=== PATIENT | male | born 1930 | race Caucasian/White ===

== ENCOUNTER 2017-05-27 07:53 | Emergency (ER) | payer MEDICARE, OTHER ==
[2017-05-27 08:05] VITALS: BP 143/70
--- NOTE | 2017-05-27 08:18 | UC ---
Ear Complaint HPI - HPI Summary HPI Summary: Left ear pain x1 week. No fever. No discharge from the ear or recent swimming. [ End ] - History of Current Complaint Chief Complaint: UCEar Stated Complaint: EAR PAIN Time Seen by Provider: 05/27/17 08:11 Hx Obtained From: Patient Onset/Duration: Gradual Onset Severity Initially: Moderate Severity Currently: Moderate Associated Signs/Symptoms: Positive: Hearing Loss. Negative: Discharge, Foreign Body Sensation, Trauma to Ear, Swelling @, URI Symptoms - Allergies/Home Medications Allergies/Adverse Reactions: Allergies Allergy/AdvReac Type Severity Reaction Status Date / Time No Known Allergies Allergy Verified 05/27/17 07:59 PMH/Surg Hx/FS Hx/Imm Hx Previously Healthy: Yes - Surgical History Surgical History: Yes Surgery Procedure, Year, and Place: GALL BLADDER REMOVAL,LAMINECTOMY,COLECTOMY, UPPER RIGHT LOBE PNEUMONECTOMY - Family History Known Family History: Positive: Unknown, Respiratory Disease - Social History Occupation: Retired Lives: With Family Alcohol Amount: 2 glasses wine daily Substance Use Type: None Smoking Status (MU): Former Smoker Type: Cigarettes Have You Smoked in the Last Year: No When Did the Patient Quit Smoking/Using Tobacco: 1975 - Immunization History Most Recent Influenza Vaccination: July 2015 Review of Systems Constitutional: Negative Skin: Negative Eyes: Negative ENT: Ear Ache Respiratory: Negative Cardiovascular: Negative Gastrointestinal: Negative Genitourinary: Negative Motor: Negative Neurovascular: Negative Musculoskeletal: Negative Neurological: Negative Psychological: Negative All Other Systems Reviewed And Are Negative: Yes Physical Exam Triage Information Reviewed: Yes Appearance: Well-Appearing, No Pain Distress, Well-Nourished Vital Signs: Initial Vital Signs Temp 97.4 F 05/27/17 08:01 Pulse 62 05/27/17 08:01 Resp 16 05/27/17 08:01 BP 143/70 05/27/17 08:01 Pulse Ox 99 05/27/17 08:01 Vital Signs Reviewed: Yes Eye Exam: Normal ENT Exam: Normal ENT: Positive: TM dull - left serous effusion. Negative: Nasal drainage Dental Exam: Normal Neck exam: Normal Neck: Positive: 1 Respiratory Exam: Normal Cardiovascular Exam: Normal Musculoskeletal Exam: Normal Neurological Exam: Normal Psychological Exam: Normal Skin Exam: Normal Ear Complaint Course/Dx - Differential Dx/Diagnosis Differential Diagnosis/HQI/PQRI: Cerumen Impaction, Otitis Externa, Otitis Media , Perforated TM, URI Provider Diagnoses: Serous Effusion Left Ear Discharge - Discharge Plan Condition: Good Disposition: HOME Patient Education Materials: Serous Otitis Media (ED) Referrals: Kyle Martin MD [Primary Care Provider] - If Needed Additional Instructions: PLEASE START CLARITIN 10 MG DAILY FOR 2 WEEKS.
== END 2017-05-27 08:29 | disposition home or self-care (01) ==
LOC: UCCORT 07:53
DX: H65.92 Unspecified nonsuppurative otitis media, left ear (principal); Z87.891 Personal history of nicotine dependence
CPT/HCPCS: 99211; G0463

== ENCOUNTER 2017-06-10 13:33 | Emergency (ER) | payer OTHER ==
[2017-06-10 13:43] VITALS: BP 130/87
--- NOTE | 2017-06-10 14:12 | UC ---
UC General HPI - HPI Summary HPI Summary: Recent travel to the [facility], has had frequent watery diarrhea, decreased appetite and gurgling. He is able to drink and urinate without difficulty. no fever, dizzyness or lightheadeness - History of Current Complaint Chief Complaint: UCGI Stated Complaint: DIARRHEA Time Seen by Provider: 06/10/17 14:01 Hx Obtained From: Patient Onset/Duration: Sudden Onset, Lasting Days Timing: Constant Onset Severity: Mild Current Severity: Moderate Associated Signs & Symptoms: Positive: Diarrhea - Allergy/Home Medications Allergies/Adverse Reactions: Allergies Allergy/AdvReac Type Severity Reaction Status Date / Time No Known Allergies Allergy Verified 06/10/17 13:42 PMH/Surg Hx/FS Hx/Imm Hx Previously Healthy: Yes - Surgical History Surgical History: Yes Surgery Procedure, Year, and Place: GALL BLADDER REMOVAL,LAMINECTOMY,COLECTOMY, UPPER RIGHT LOBE PNEUMONECTOMY - Family History Known Family History: Positive: Unknown, Respiratory Disease - Social History Alcohol Use: Weekly Alcohol Amount: 2 glasses wine Substance Use Type: None Smoking Status (MU): Former Smoker Type: Cigarettes Have You Smoked in the Last Year: No When Did the Patient Quit Smoking/Using Tobacco: 1975 - Immunization History Most Recent Influenza Vaccination: July 2015 Review of Systems Constitutional: Negative Skin: Negative Eyes: Negative ENT: Negative Respiratory: Negative Cardiovascular: Negative Gastrointestinal: Diarrhea Genitourinary: Negative Motor: Negative Neurovascular: Negative Musculoskeletal: Negative Neurological: Negative Psychological: Negative All Other Systems Reviewed And Are Negative: Yes Physical Exam Triage Information Reviewed: Yes Appearance: Well-Appearing, Well-Nourished, Pain Distress Vital Signs: Initial Vital Signs Temp 98.1 F 06/10/17 13:38 Pulse 80 06/10/17 13:38 Resp 16 06/10/17 13:38 BP 130/87 06/10/17 13:38 Pulse Ox 98 06/10/17 13:38 Vital Signs Reviewed: Yes Eye Exam: Normal ENT Exam: Normal Dental Exam: Normal Neck exam: Normal Respiratory Exam: Normal Respiratory: Positive: Chest non-tender, Lungs clear, Normal breath sounds Cardiovascular Exam: Normal Cardiovascular: Positive: RRR, No Murmur, Pulses Normal Abdominal Exam: Normal Abdomen Description: Positive: Nontender, No Organomegaly, Soft, CVA Tenderness (R) - neg, CVA Tenderness (L) - neg Bowel Sounds: Positive: Hyperactive Musculoskeletal Exam: Normal Musculoskeletal: Positive: No Edema Psychological Exam: Normal Skin Exam: Normal Course/Dx - Course Course Of Treatment: hx obtained, exam performed, meds reviewed, stool kit, cbc and cmp obtained, - Differential Dx - Multi-Symptom Provider Diagnoses: travelers diarrhea Discharge - Discharge Plan Condition: Stable Disposition: HOME Patient Education Materials: Traveler's Diarrhea (ED) Additional Instructions: 1. your lab work and stool samples will be sent to lab today, 2. We will call with any abnormalities 3. Continue to increase fluid intake and eat as tolerated 4. If you develop any lightheadness, dizzyness, chest pain or other worsening symtpoms report to ER for hyrdation and further evaluation.
[2017-06-10 19:33] LABS: Hematocrit 46 % (42-52); Hemoglobin 15.7 g/dl (14.0-18.0); Mean Corpuscular HGB Conc 34 g/dl (31-36); Mean Corpuscular Hemoglobin 32 pg (27-31); Mean Corpuscular Volume 94 fL (80-94); Mean Platelet Volume 8 um3 (7.4-10.4); Red Blood Count 4.95 10^6/ul (4.0-5.4); Red Cell Distribution Width 14 % (10.5-15); White Blood Count 5.7 10^3/ul (3.5-10.8)
[2017-06-10 19:44] LABS: Albumin 4.4 g/dL (3.2-5.2); BUN/Creatinine Ratio 17.8 (8-20); Calcium 9.2 mg/dL (8.6-10.3); EGFR African American 84.7 (>60); EGFR Non-African American 65.8 (>60); Globulin 2.2 g/dL (2-4); Potassium 3.9 mmol/L (3.5-5.0); Total Bilirubin 0.7 mg/dL (0.2-1.0); Total Protein 6.6 g/dL (6.4-8.9)
--- NOTE | 2017-06-15 13:35 | UC ---
Progress - Progress Note Progress Note: PLEASE CALL THE PT WITH THE STOOL CULTURE RESULTS + SHIGELLA NO TREATMENT NEEDED AT THIS TIME SELF LIMITED BACTERIAL INFECTION UNLESS STILL HAVING DIARRHEA I THE PT. IS NOT BETTER AND STILL HAS DIARRHEA, WILL CALL IN AN ANTIBIOTICS FOR HIM
== END 2017-06-10 14:43 | disposition home or self-care (01) ==
LOC: UCCORT 13:33
DX: A09 Infectious gastroenteritis and colitis, unspecified (principal); Z90.49 Acquired absence of other specified parts of digestive tract; Z87.891 Personal history of nicotine dependence
CPT/HCPCS: 36415; 80053; 85025; 87045; 87046; 87077; 87177; 87209; 87328; 87329; 87899; 99211; G0463

== ENCOUNTER 2017-10-16 20:30 | Emergency (ER) | payer OTHER ==
[2017-10-16 20:58] VITALS: BP 135/75
[2017-10-16] MEDS ORDERED: Polymyx/Trimethoprim OPTH* 10 ML BTL BOTH EYES ONE (21:00)
--- NOTE | 2017-10-16 21:00 | UC ---
Eye Complaint HPI - HPI Summary HPI Summary: Crusting and tearing from both eye began this morning - History of Current Complaint Chief Complaint: UCEye Stated Complaint: BILATERAL EYE COMPLAINT Time Seen by Provider: 10/16/17 20:49 Hx Obtained From: Patient Onset/Duration: Sudden Onset, Lasting Days - 1 Timing: Constant Severity Initially: Moderate Severity Currently: Moderate Location of Injury: Conjunctiva Aggravating Factor(s): Nothing Alleviating Factor(s): Nothing Associated Signs And Symptoms: Positive: Drainage (Purulent). Negative: Vision Impairment Bilateral, Fever, Swelling - Allergies/Home Medications Allergies/Adverse Reactions: Allergies Allergy/AdvReac Type Severity Reaction Status Date / Time No Known Allergies Allergy Verified 07/12/17 10:19 PMH/Surg Hx/FS Hx/Imm Hx Previously Healthy: No Cardiovascular History: Cardiac Disease, Hypertension Other GI/ History: BPH Other Neurological History: Vetrtigo - Surgical History Surgical History: Yes Surgery Procedure, Year, and Place: GALL BLADDER REMOVAL,LAMINECTOMY,COLECTOMY, UPPER RIGHT LOBE PNEUMONECTOMY - Family History Known Family History: Positive: Unknown, Respiratory Disease - Social History Occupation: Retired Lives: With Family Alcohol Use: Weekly Alcohol Amount: 2 glasses wine Substance Use Type: None Smoking Status (MU): Former Smoker Type: Cigarettes Have You Smoked in the Last Year: No When Did the Patient Quit Smoking/Using Tobacco: 1975 - Immunization History Most Recent Influenza Vaccination: July 2015 Review of Systems Constitutional: Negative Skin: Negative Eyes: Drainage - OU, Eye Redness - ou ENT: Negative Respiratory: Negative Cardiovascular: Negative Gastrointestinal: Negative Genitourinary: Negative Motor: Negative Neurovascular: Negative Musculoskeletal: Negative Neurological: Negative Psychological: Negative Is Patient Immunocompromised?: No All Other Systems Reviewed And Are Negative: Yes Physical Exam Triage Information Reviewed: Yes Appearance: Well-Appearing, No Pain Distress, Well-Nourished Vital Signs Reviewed: Yes Eye Exam: Other Eyes: Positive: Conjunctiva Inflamed - OU, Discharge - OU ENT Exam: Normal ENT: Positive: Normal ENT inspection, Hearing grossly normal, TMs normal, Uvula midline. Negative: Nasal congestion, Tonsillar swelling, Trismus, Muffled voice , Hoarse voice, Dental tenderness, Sinus tenderness Dental Exam: Normal Neck exam: Normal Neck: Positive: Supple, Nontender Respiratory Exam: Normal Respiratory: Positive: Chest non-tender, Lungs clear, Normal breath sounds, No respiratory distress, No accessory muscle use Cardiovascular Exam: Normal Cardiovascular: Positive: RRR, No Murmur, Pulses Normal, Brisk Capillary Refill Musculoskeletal Exam: Normal Musculoskeletal: Positive: Strength Intact, ROM Intact, No Edema Neurological Exam: Normal Neurological: Positive: Alert, Muscle Tone Normal Psychological Exam: Normal Psychological: Positive: Normal Response To Family, Age Appropriate Behavior Skin Exam: Normal Eye Complaint Course/Dx - Course Course Of Treatment: Polytrim eye drops warm compress follow with pcp - Differential Dx/Diagnosis Provider Diagnoses: B/L conjuctivitis Discharge - Discharge Plan Condition: Stable Disposition: HOME Patient Education Materials: How to Use Eye Drops (ED), Conjunctivitis (ED) Referrals: Kyle Martin MD [Primary Care Provider] - If Needed
== END 2017-10-16 21:15 | disposition home or self-care (01) ==
LOC: UCCORT 20:30
DX: H10.33 Unspecified acute conjunctivitis, bilateral (principal); I51.9 Heart disease, unspecified; I10 Essential (primary) hypertension; N40.0 Benign prostatic hyperplasia without lower urinary tract symptoms; R42 Dizziness and giddiness; Z90.49 Acquired absence of other specified parts of digestive tract; Z90.2 Acquired absence of lung [part of]; Z87.891 Personal history of nicotine dependence
CPT/HCPCS: 99212; G0463

== ENCOUNTER 2018-03-15 07:55 | Emergency (ER) | payer OTHER ==
[2018-03-15 08:24] VITALS: BP 142/80
--- NOTE | 2018-03-15 08:33 | UC ---
Respiratory Complaint HPI - HPI Summary HPI Summary: cough x 5 days cough is productive with yellow sputum + runny nose, pnd, no fever, no chills , no sob - History of Current Complaint Chief Complaint: UCRespiratory Stated Complaint: CONGESTION Time Seen by Provider: 03/15/18 08:24 Hx Obtained From: Patient Onset/Duration: Gradual Onset, Lasting Days - 5, Still Present Timing: Constant Severity Initially: Moderate Severity Currently: Moderate Pain Intensity: 0 Character: Cough: Productive - yellow Aggravating Factors: Exertion, Deep Breaths Alleviating Factors: OTC Meds Associated Signs And Symptoms: Positive: URI, Nasal Congestion. Negative: Dyspnea, Fever, Chills, Pleuritic Chest Pain, Wheezing, Hemoptysis, Dizziness, Calf Pain, Calf Swelling, Edema, Hoarseness, Sinus Discomfort - Allergies/Home Medications Allergies/Adverse Reactions: Allergies Allergy/AdvReac Type Severity Reaction Status Date / Time No Known Allergies Allergy Verified 03/15/18 08:17 Home Medications: Home Medications Dextromethorphan Polistirex [Delsym] 30 mg PO BID PRN 03/15/18 [History Confirmed 03/15/18] PMH/Surg Hx/FS Hx/Imm Hx Cardiovascular History: Hypertension Respiratory History: COPD Cancer History: Lung Cancer, Colorectal Cancer - Surgical History Surgical History: Yes Surgery Procedure, Year, and Place: GALL BLADDER REMOVAL,LAMINECTOMY,COLECTOMY, UPPER RIGHT LOBE PNEUMONECTOMY - Family History Known Family History: Positive: Unknown, Respiratory Disease - Social History Alcohol Use: Daily Alcohol Amount: 2 glasses wine Substance Use Type: None Smoking Status (MU): Former Smoker Type: Cigarettes Have You Smoked in the Last Year: No When Did the Patient Quit Smoking/Using Tobacco: 1975 - Immunization History Most Recent Influenza Vaccination: July 2015 Review of Systems Constitutional: Negative Skin: Negative Eyes: Negative ENT: Nasal Discharge Respiratory: Cough Cardiovascular: Negative Gastrointestinal: Negative Is Patient Immunocompromised?: No All Other Systems Reviewed And Are Negative: Yes Physical Exam Triage Information Reviewed: Yes Appearance: Well-Appearing, No Pain Distress, Well-Nourished Vital Signs: Initial Vital Signs Temp 98.1 F 03/15/18 08:19 Pulse 75 03/15/18 08:19 Resp 20 03/15/18 08:19 BP 142/80 03/15/18 08:19 Pulse Ox 96 03/15/18 08:19 Vital Signs Reviewed: Yes Eyes: Positive: Conjunctiva Clear ENT: Positive: Normal ENT inspection, Hearing grossly normal, Pharyngeal erythema, Nasal drainage. Negative: Tonsillar swelling, Tonsillar exudate Neck exam: Normal Neck: Positive: Supple, Nontender, No Lymphadenopathy Respiratory Exam: Normal Respiratory: Positive: Chest non-tender, Lungs clear, Normal breath sounds, No respiratory distress Cardiovascular: Positive: RRR, No Murmur, Pulses Normal Skin Exam: Normal UC Diagnostic Evaluation - Laboratory O2 Sat by Pulse Oximetry: 96 Respiratory Course/Dx - Differential Dx/Diagnosis Provider Diagnoses: uri Discharge - Sign-Out/Discharge Documenting (check all that apply): Discharge/Admit/Transfer - Discharge Plan Condition: Stable Disposition: HOME Patient Education Materials: Upper Respiratory Infection (ED) Referrals: Kyle Martin MD [Primary Care Provider] - 7 Days - Billing Disposition and Condition Condition: STABLE Disposition: HOME
== END 2018-03-15 08:33 | disposition home or self-care (01) ==
LOC: UCCORT 07:55
DX: J06.9 Acute upper respiratory infection, unspecified (principal); I10 Essential (primary) hypertension; J44.9 Chronic obstructive pulmonary disease, unspecified; Z90.49 Acquired absence of other specified parts of digestive tract; Z87.891 Personal history of nicotine dependence; Z85.118 Personal history of other malignant neoplasm of bronchus and lung; Z85.038 Personal history of other malignant neoplasm of large intestine
CPT/HCPCS: 99211; G0463

== ENCOUNTER 2019-03-24 07:45 | Emergency (ER) | payer OTHER ==
--- OUTSIDE RECORDS SUMMARY | 2019-03-24 07:57 | XMS REPORT | Continuity of Care Document ---
:1930 External Reference #:[id number] Author Name Lee Lucio MD Address [address] [place] [address] Care Team Providers Name Role Phone Ralph Anne M.D. Care Team Information Supervisor [employer] Unavailable Kyle Martin MD Primary Care Physician Unavailable Payers Date Identification Numbers Payment Provider Subscriber Policy Number: [id number] [employer]vantage Gab Lui Group Number: [id number] [address] PayID: [id number] [place] [address] Expires: 2017 Policy Number: [id number] [employer] Gab Lui PayID: [id number] [address] [address] [place] [address] Effective: 2011 Policy Number: [id number] Medicare Gab Lui Expires: 2016 PayID: [id number] [address] [place] [address] Expires: 2016 Policy Number: [id number] [facility] Mary Lui Group Number: [id number] Group Name: [place] [address] PayID: [id number] Advance Directives Description No Information Available Problems Active Problems Provider Date Raised prostate specific antigen Lee Lucio MD Onset: 02/01/2012 Increased frequency of urination Lee Lucio MD Onset: 03/17/2012 Nocturia - finding Lee Lucio MD Onset: 03/17/2012 Dribbling of urine Lee Lucio MD Onset: 03/17/2012 Impotence of organic origin Lee Lucio MD Onset: 03/17/2012 Benign prostatic hypertrophy with Lee Lucio MD Onset: 03/17/2012 outflow obstruction Disorder of prostate YANELI AgrawalBC C.U.N.P. Onset: 09/21/2012 Microscopic hematuria YANELI AgrawalBC C.U.N.P. Onset: 09/21/2012 Urgent desire to urinate KATT Agrawal C.U.N.P. Onset: 02/20/2013 Benign prostatic hypertrophy without KATT Agrawal C.U.N.P. Onset: 05/2013 outflow obstruction Nocturia - finding YANELI AgrawalBC C.U.N.P. Onset: 05/25/2013 Kidney stone YANELI AgrawalBC C.U.N.P. Onset: 05/25/2013 Testicular hypofunction YANELI AgrawalBC C.U.N.P. Onset: 07/10/2014 Nephrolithiasis KATT Agrawal C.U.N.P. Onset: 07/10/2014 Nocturia Lee Lucio MD Onset: 07/12/2015 Sivakumar hematuria YANELI AgrawalBC C.U.N.P. 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 Onset: 07/13/2016 Incomplete emptying of bladder KATT Agrawal C.U.N.P. Onset: 07/13/2016 Family History Date Family Member(s) Observation Comments Father Heart Disease Mother Stroke Social History Type Date Description Comments Sex Unknown Marital Status Patient is Occupation Patient is retired Tobacco Use Start: Unknown End: Unknown Former Cigarette Smoker quit 1975 Smoking Status Reviewed: 02/23/19 Former Cigarette Smoker quit 1975 ETOH Use Consumes 2 glasses of wine per day Allergies, Adverse Reactions, Alerts Description No Known Drug Allergies Medications Active Medications SIG Qnty Indications Ordering Provider Date Pamela 1 po qd 60caps Unknown 0.5-0.4mg Capsules Symbicort Unknown 160-4.5mcg/Act Aerosol Aspirin Unknown 325mg Tablets Simvastatin Unknown 40mg Tablets Proair HFA Unknown 108(90Base) mcg/Act Aerosol History Medications [place] as directed one 6units Lee Lucio, 07/12/2015 - 500mcg Pellet half hour before 05/08/2016 sex Cialis one by mouth one 6tabs Lee Lucio, 07/12/2015 - 20mg Tablets hour before sex. 05/08/2016 Cephalexin Take one tid for 21tabs Lee Lucio, 02/20/2013 - 250mg 7 days 05/25/2013 Tablets Levitra take one tablet 4tabs Lee Lucio, 03/17/2012 - 20mg Tablets prior to sexual 07/12/2015 activity as needed Tamsulosin HCL Take 1 Capsule 90caps Lee Lucio, 05/18/2011 - 0.4mg Daily 05/25/2013 Capsules Tamsulosin HCL 1 po qd 90caps Gab Hobbs 04/22/2011 - 0.4mg MD Brandee 05/18/2011 Capsules Levitra as needed 6tabs Unknown - 10mg Tablets 03/17/2012 Cialis use 1 tab prn as 6tabs 607.84 Unknown - 20mg Tablets directed 05/25/2013 Meclizine HCL Unknown - 12.5mg 07/11/2015 Tablets Combivent Respimat prn Unknown - 07/11/2015 20-100mcg/Act Aerosol Telmisartan 1t by mouth every Unknown - Tablets day 07/11/2015 Immunizations Description No Information Available Vital Signs Date Vital Result Comment 02/23/2019 1:36pm Height 71 inches 5'11" BP Systolic 152 mmHg BP Diastolic 68 mmHg Heart Rate 77 /min 07/13/2018 11:36am Height 71 inches 5'11" Weight 240.00 lb Weight 108.864 kg BMI (Body Mass Index) 33.5 kg/m2 BP Systolic 127 mmHg BP Diastolic 75 mmHg Heart Rate 70 /min 07/13/2017 11:15am Height 71 inches 5'11" Weight 232.00 lb Weight 105.235 kg BMI (Body Mass Index) 32.4 kg/m2 BP Systolic 138 mmHg BP Diastolic 73 mmHg Heart Rate 73 /min 07/13/2016 10:53am Height 72 inches 6'0" Weight 242.00 lb Weight 109.771 kg BMI (Body Mass Index) 32.8 kg/m2 BP Systolic 131 mmHg BP Diastolic 69 mmHg Heart Rate 93 /min 03/25/2016 10:24am Height 72 inches 6'0" Weight 230.00 lb Weight 104.328 kg BMI (Body Mass Index) 31.2 kg/m2 BP Systolic 151 mmHg BP Diastolic 79 mmHg Heart Rate 71 /min 07/12/2015 1:40pm Height 72 inches 6'0" Weight 234.00 lb Weight 106.142 kg BMI (Body Mass Index) 31.7 kg/m2 BP Systolic 153 mmHg BP Diastolic 88 mmHg Heart Rate 77 /min Post Void Residual ml 94 Bladder Scan, Indication: urinary frequency 07/10/2014 10:46am Height 71 inches 5'11" Weight 242.00 lb Weight 109.771 kg BMI (Body Mass Index) 33.7 kg/m2 BP Systolic 187 mmHg BP Diastolic 80 mmHg Heart Rate 74 /min 05/25/2013 10:50am Height 71 inches 5'11" Weight 233.00 lb Weight 105.689 kg BMI (Body Mass Index) 32.5 kg/m2 BP Systolic 121 mmHg BP Diastolic 73 mmHg Heart Rate 96 /min 03/17/2012 1:24pm Height 71 inches 5'11" Weight 232.00 lb Weight 105.235 kg BMI (Body Mass Index) 32.4 kg/m2 BP Systolic 128 mmHg BP Diastolic 60 mmHg Results Test Date Facility Test Result H/L Range Note Laboratory test 02/23/2019 Laboratory [facility] Urine Culture < pending> finding [address] [place] [address] [phone] Laboratory test 02/23/2019 [facility] Urine Cytology <pending> finding [address] [place] [address] [phone] 230 Ua Routine 02/23/2019 [facility] Ua Glucose Negative REF TO DR ADDRESS ON ORDER FOR (398)- - Ua Protein Negative Ua Nitrite Negative Ua Leuko Negative Ua Blood Moderate * Ua Color Yellow Ua Ketones Negative Ua Clarity Clear Ua Specific [place] 1.015 1.003-1.030 Ua PH 5.0 5.0-7.5 Ua Bilirubin Negative Ua Urobilinogen 0.2 E.U./dL 0.0-1.0 Urine Cytology 07/13/2018 [facility] Clinical History [address]40.[address] [place] [address] [phone] Specimen Adequacy Satisfactory for <SEE NOTE> N 1 BodySite Voided - Clean C <SEE NOTE> N 2 Gross Description Received in a sp <SEE NOTE> N 3 Microscopic Description None. N Final Diagnosis NEGATIVE FOR HIG <SEE NOTE> N 4 CPTCode 43783 N PDF Report SEE IMAGE 230 Ua Routine 07/13/2018 [facility] Ua Glucose Negative REF TO DR ADDRESS ON ORDER FOR (315)- - Ua Protein Negative Ua Nitrite Negative Ua Leuko Negative Ua Blood Trace-lysed * Ua Color Yellow Ua Ketones Negative Ua Clarity Clear Ua Specific [place] 1.015 1.003-1.030 Ua PH 7.5 5.0-7.5 Ua Bilirubin Negative Ua Urobilinogen 0.2 E.U./dL 0.0-1.0 Laboratory test 07/12/2018 N2N/CCD Import PSA 4.520 High 0.000-4.000 5 finding ng/mL Laboratory test 07/12/2018 Outside Facility PSA Total 4.520 High finding (315)- - Hemoglobin A1c 02/21/2018 N2N/CCD Import Estimated 114 mg/dL 71-140 6 Average Glucose Calc Hemoglobin A1c 5.6 % 4.1-5.9 BMP 02/21/2018 Outside Facility BUN - Urea Nitrogen 19 (315)- - Creatinine 1.1 Calcium 9.5 Potassium 4.5 Laboratory test finding 02/21/2018 N2N/CCD Import Alt 27 U/L 3-42 Ast 21 U/L 8-42 Chol/ HDL Ratio 2.6 ratio Low 4.0-6.7 Cholesterol 182 mg/dL 50-199 HDL 70 mg/dL 29-71 7 LDL (Calc) 97 mg/dL 20-99 8 TSH 1.74 uIU/mL 0.35-4.94 Triglycerides 77 mg/dL 30-200 Uric Acid 7.8 mg/dL 2.6-8.4 VLDL 15 mg/dL 2-29 Basic (BMP) 02/21/2018 N2N/CCD Import [place] Egfr >60 >60 9 Anion Gap 10 mmol/L 5-15 10 BUN 19 mg/dL 6-26 Calcium 9.5 mg/dL 8.5-10.2 Carbon Dioxide 29 mmol/L 24-34 Chloride# 102 mmol/L 97-110 11 Creatinine 1.1 mg/dL 0.5-1.4 Glucose 111 mg/dL High 70-105 Non [place] Egfr >60 >60 12 Potassium 4.5 mmol/L 3.5-5.2 Sodium 141 mmol/L 135-146 13 230 Ua Routine 07/13/2017 [facility] Ua Glucose Negative REF TO DR ADDRESS ON ORDER FOR (315)- - Ua Protein Negative Ua Nitrite Negative Ua Leuko Negative Ua Blood Large * Ua Color Yellow Ua Ketones Negative Ua Clarity Clear Ua Specific [place] 1.010 1.003-1.030 Ua PH 5.5 5.0-7.5 Ua Bilirubin Negative Ua Urobilinogen 0.2 E.U./dL 0.0-1.0 Laboratory test 07/08/2017 N2N/CCD Import PSA 2.690 ng/mL 0.000-4.000 14 finding Laboratory test 07/08/2016 Outside Facility PSA Total 2.2 finding (315)- - Laboratory test 07/08/2016 N2N/CCD Import PSA % Free 32 % 15 finding PSA Free 0.7 ng/mL PSA Total 2.2 ng/mL (0.0-4.0) Laboratory test 05/08/2016 Laboratory [facility] Urine Culture SPECIMEN 16 finding [address]> [place], [place] [id number] [phone] 230 Ua Routine 05/08/2016 [facility] Ua Glucose Negative REF TO DR ADDRESS ON ORDER FOR (315)- - Ua Protein Negative Ua Nitrite Negative Ua Leuko Negative Ua Blood Large * Ua Color Yellow Ua Ketones Negative Ua Clarity Clear Ua Specifici [place] <=1.005 1.003-1.030 Ua PH 5.0 5.0-7.5 Ua Bilirubin Negative Ua Urobilinogen 0.2 E.U./dL 0.0-1.0 BUN And Creatinine 05/01/2016 Outside Facility BUN - Urea Nitrogen 17 (315)- - Creatinine 1.0 Laboratory test finding 05/01/2016 N2N/CCD Import BUN 17 mg/dL 6-26 Creatinine 1.0 mg/dL 0.5-1.4 230 Ua Routine 03/25/2016 [facility] Ua Glucose Negative REF TO DR ADDRESS ON ORDER FOR (315)- - Ua Protein Negative Ua Nitrite Negative Ua Leuko Negative Ua Blood Negative Ua Color Yellow Ua Ketones Negative Ua Clarity Clear Ua Specifici [place] 1.020 1.003-1.030 Ua PH 5.0 5.0-7.5 Ua Bilirubin Negative Ua Urobilinogen 0.2 E.U./dL 0.0-1.0 Urine Cytology 07/12/2015 [facility] Clinical History [address] [place], [place] [id number] [phone] Specimen Adequacy Scant urothelial <SEE NOTE> N 17 BodySite Voided - Clean C <SEE NOTE> N 18 Gross Description Received in a sp <SEE NOTE> N 19 Microscopic Description None. N Final Diagnosis NO MALIGNANT RIKKI <SEE NOTE> N 20 CPTCode 67819 N PDF Report SEE IMAGE #Ua Routine 07/12/2015 [facility] Ua Glucose Negative REF TO DR ADDRESS ON ORDER FOR (315)- - Ua Protein Negative Ua Nitrite Negative Ua Leuko Negative Ua Blood Negative Ua Color Yellow Ua Ketones Negative Ua Clarity Clear Ua Specific [place] 1.010 1.003-1.030 Ua PH 6.0 5.0-7.5 Ua Bilirubin Negative Ua Urobilinogen 0.2 E.U./dL 0.0-1.0 Laboratory test 07/12/2015 Laboratory [facility] Urine Culture SPECIMEN 21 finding [address]> [place], [place] [id number] [phone] Laboratory test 07/11/2015 Outside Facility PSA Total 2.59 finding (768)- - BUN And 07/10/2014 Laboratory [facility] Urea Nitrogen 19 mg/dL (7-[address] ) [place], [place] [address] [phone] Creatinine 07/10/2014 Laboratory [facility] Creatinine 0.9 mg/dL (0.8- [address]) [place] [address] [phone] GFR 86 ml/min/1.73m2 (>59) GFR ( Amer) >90 ml/min/1.73m2 (>59) GFR Interpretation <SEE NOTE> 22 Laboratory 07/10/2014 [facility] [facility] Testosterone 394.67 300.00-1000.00 test finding [address] [facility] ng/dL [place], [place] [id number] [phone] Urine Culture 07/10/2014 [facility] [employer] Result (SEE 23 & Sensitivity [address] [facility] NOTE) [place] [address] [phone] Urine Cytology 07/10/2014 [facility] Clinical [address] [place] [address] [phone] Specimen Adequacy Adequate urothel <SEE NOTE> N 24 BodySite Voided - Clean C <SEE NOTE> N 25 Gross Description Received in a sp <SEE NOTE> N 26 Microscopic Description Marked numbers o <SEE NOTE> N 27 Final Diagnosis NO MALIGNANT RIKKI <SEE NOTE> N 28 CPTCode 89035 N PDF Report SEE IMAGE #Ua Routine 07/10/2014 [facility] Ua Glucose Negative REF TO DR ADDRESS ON ORDER FOR (315)- - Ua Protein Negative Ua Nitrite Negative Ua Leuko Moderate * Ua Blood Small * Ua Color Yellow Ua Ketones Negative Ua Clarity Clear Ua Specific [place] 1.015 1.003-1.030 Ua PH 6.0 5.0-7.5 Ua Bilirubin Negative Ua Urobilinogen 1.0 E.U./dL 0.0-1.0 Laboratory test finding 06/21/2014 Outside Facility PSA Total 3.6 (315)- - Laboratory test finding 03/08/2014 Outside Facility PSA Total 4.1 High (315)- - CMP 03/08/2014 Outside Facility BUN - Urea Nitrogen 14 (315)- - Creatinine 0.9 Calcium 9.2 Alkaline Phosphatase 90 Culture Urine 05/25/2013 [facility] [employer] Result (SEE NOTE ) 29 [address] [place], [place] [id number] [phone] #Ua Routine 05/25/2013 [facility] Ua Glucose Negative REF TO DR ADDRESS ON ORDER FOR (315)- - Ua Protein Negative Ua Nitrite Negative Ua Leuko Moderate * Ua Blood Small * Ua Color Not Entered Ua Ketones Negative Ua Clarity Not Entered Ua Specific [place] 1.010 Ua PH 5.0 Ua Bilirubin Negative Ua Urobilinogen 0.2 E.U./dL Laboratory test 05/19/2013 [facility] PSA Total 5.63 finding [address] [place] [address] [phone] Culture Urine 02/20/2013 [facility] [employer] Result (SEE NOTE ) 30, [address] [place] [address] [phone] #Ua Routine 02/20/2013 [facility] Ua Glucose Negative REF TO DR ADDRESS ON ORDER FOR (315)- - Ua Protein Negative Ua Nitrite Negative Ua Leuko Small * Ua Blood Small * Ua Color Not Entered Ua Ketones Negative Ua Clarity Not Entered Ua Specific [place] <=1.005 Ua PH 5.0 Ua Bilirubin Negative Ua Urobilinogen 0.2 E.U./dL Prostatic Acid Phosphatase 01/09/2013 Outside Facility Misc 2.75 (315)- - PSA Free+Total+%Free 01/09/2013 Outside Facility PSA Total 19.1 (315)- - PSA Free 3.71 PSA % Free 19.4 Laboratory test 09/21/2012 [facility] [employer] [facility] Total PSA 20.15 ng/mL High 0.00-4.[address] [place] [address] [phone] #Ua Routine 09/21/2012 [facility] Ua Glucose Negative REF TO DR ADDRESS ON ORDER FOR (315)- - Ua Protein Negative Ua Nitrite Negative Ua Leuko Moderate * Ua Blood Small * Ua Color Not Entered Ua Ketones Negative Ua Clarity Not Entered Ua Specific [place] 1.010 Ua PH 5.0 Ua Bilirubin Negative Ua Urobilinogen 0.2 E.U./dL Laboratory 03/17/2012 [facility] [facility] Total PSA 18.089 High 0.000-4.000 test finding [address] [place] [address] ng/[place] [address] [phone] Culture Urine 03/17/2012 [facility] [employer] [facility] Result (SEE NOTE ) [address] [place] [address] [phone] #Ua Routine 03/17/2012 [facility] Ua Glucose Negative REF TO DR ADDRESS ON ORDER FOR (315)- - Ua Protein Negative Ua Nitrite Negative Ua Leuko Large * Ua Blood Moderate * Ua Color Not Entered Ua Ketones Negative Ua Clarity Not Entered Ua Specific [place] 1.020 Ua PH 5.5 Ua Bilirubin Negative Ua Urobilinogen 0.2 E.U./dL #Ua Routine 10/22/2011 [facility] Ua Glucose Negative REF TO DR ADDRESS ON ORDER FOR (315)- - Ua Protein Negative Ua Nitrite Negative Ua Leuko Moderate * Ua Blood Trace-intact * Ua Color Not Entered Ua Ketones Negative Ua Clarity Not Entered Ua Specific [place] >=1.030 Ua PH 5.0 Ua Bilirubin Negative Ua Urobilinogen 0.2 E.U./dL Culture Urine 10/22/2011 [facility] [employer] [facility] Result (SEE NOTE ) [address] [place] [address] [phone] Laboratory test 09/28/2011 [facility] Total PSA 17.34 ng/mL High 0.00-[address] [place] [address] [phone] #Ua Routine 09/28/2011 [facility] Ua Glucose Negative REF TO DR ADDRESS ON ORDER FOR (283)- - Ua Protein Negative Ua Nitrite Negative Ua Leuko Moderate * Ua Blood Large * Ua Color Not Entered Ua Ketones Negative Ua Clarity Not Entered Ua Specific [place] <=1.005 Ua PH 6.0 Ua Bilirubin Negative Ua Urobilinogen 0.2 E.U./dL Culture Urine 03/02/2011 [facility] [employer] [facility] Result (SEE NOTE ) [address] [place] [address] [phone] #Ua Routine 03/02/2011 [facility] Ua Glucose Negative REF TO DR ADDRESS ON ORDER FOR (452)- - Ua Prot/Creat Normal Ua Protein Negative Ua Nitrite Negative Ua Leuko Large * Ua Blood Small * Ua Color Not Entered Ua Ketones Negative Ua Clarity Not Entered Ua Specific [place] <=1.005 Ua PH 5.5 Ua Creatinine 100 mg/dL Laboratory test 03/02/2011 [facility] Total PSA 16.00 High 0.00-4.[address] [place] [address] ng/[place] [address] [phone] Laboratory test 03/02/2011 [facility] Urine x finding REF TO DR ADDRESS ON ORDER FOR Cytology Void (652)- - (Amp/CBL) 1 Satisfactory for evaluation. 2 Voided - Clean Catch 3 Received in a specimen container, labeled with the patients name and , is Clear Yellow fluid consistent with urine, measuring approximately 55 ml. 4 NEGATIVE FOR HIGH-GRADE UROTHELIAL CARCINOMA. 5 Beginning 12/13/06 PSA values assayed at [facility] laboratories uses chemiluminescence methodology manufactured by [employer] for use on the DXI analyzer. Values obtained with different assay methods or kits can not be used interchangeably. Serum PSA measurement is not an absolute test for malignancy. The PSA value should be used in conjunction with information available from clinical evaluation and other diagnostic procedures. 6 03/04 preOV 7 Per NCEP ATP III Guidelines: Results lower than 40 mg/dL are suggestive of increased risk for coronary artery disease. Results > or=to 60 mg/dL are considered a negative risk factor. 8 Per NCEP ATP III Guidelines: Normal Population <130 Patients with medical conditions: CHD/DM Optimal: <100 Borderline high: 130-159 High: 160-189 Very high: >189 9 Concerning GFR Guidelines for Americans: Normal function or mild renal disease, if clinically at risk: >/=60 mL/min Moderately decreased: 30-59 Severely decreased: 15-29 Renal failure: <15 10 Updated Reference Range 11 Updated reference range on new analyzer 12 Concerning GFR Guidelines: Normal function or mild renal disease, if clinically at risk: >/=60 mL/min Moderately decreased: 30-59 Severely decreased: 15-29 Renal failure: <15 Glomerular Filtration Rate (GFR) is estimated based on the MDRD equation, which assumes a steady state for creatinine as recommended by the National Kidney Disease Education Program in conjunction with the National Institutes of Health and the National Kidney Foundation. Clinical conditions in which it may be necessary to measure GFR by using clearance methods include extremes of age and body size, severe malnutrition or obesity, diseases of skeletal muscle, paraplegia or quadriplegia, vegetarian diet, rapidly changing kidney function, and calculation of the dose of potentially toxic drugs that are excreted by the kidneys. 13 Updated reference range on new analyzer 14 FAX RESULTS TO [facility] [phone] FAXED 24 - A.D. 15 Fastin hours 16 SPECIMEN DESCRIPTION MIDSTREAM URINE,CLEAN CATCH CULTURE RESULTS NO GROWTH REPORT STATUS FINAL 05/09/2016 17 Scant urothelial cells present. 18 Voided - Clean Catch 19 Received in a specimen container, labeled with the patients name and , is Clear Yellow fluid consistent with urine, measuring approximately 15 ml. 20 NO MALIGNANT CELLS IDENTIFIED. 21 SPECIMEN DESCRIPTION MIDSTREAM URINE,CLEAN CATCH CULTURE RESULTS NO GROWTH REPORT STATUS FINAL 07/14/2015 22 NORMAL KIDNEY FUNCTION OR MILD DISEASE - GFR >OR=60 CHRONIC KIDNEY DISEASE - GFR 15 - 59 RENAL FAILURE - GFR <15 Est. GFR calculation based on the MDRD study equation, which assumes a steady state for creatinine. Est. GFR should not be used for medication dosing. 23 SOURCE: Voided GENERAL COMMENTS: Urogenital vipin, consisting of viridans Streptococcus spp. greater than 100,000 CFU/mL. Viridans Streptococci are usually viewed as urogenital vipin and sensitive to penicillin and cephalosporins. Clinical correlation is required. 24 Adequate urothelial cells present. 25 Voided - Clean Catch 26 Received in a specimen container, labeled with the patients name and , is Cloudy Yellow fluid consistent with urine, measuring approximately 10 ml. 27 Marked numbers of neutrophils present. Rare red cells present. 28 NO MALIGNANT CELLS IDENTIFIED. 29 GENERAL COMMENTS: Mixed urogenital vipin, consisting of predominantly of viridans streptococcus spp. greater than 100,000 CFU/mL. Viridans Streptococci are usually viewed as urogenital vipin and sensitive to penicillin and cephalosporins. Clinical correlation is required. Only if clinically significant, further identification and/or sensitivity study may be performed upon specific request within 3 days of reporting. --- S=Sensitive I=Intermediate R=Resistant IB=Inducible Beta-lactamase. Appears in place of "Suceptible" with species known to possess inducible beta-lactamases. Potentially, they may become resistant to all beta-lactam drugs. Monitoring of p atients during/after therapy is recommended. Avoid other/combined beta- lactam drugs. 30 GENERAL COMMENTS: Greater than 100,000 CFU/ml, viridan streptococcus spp. No further identification or susceptibility performed, due to organism's questionable significance. --- S=Sensitive I=Intermediate R=Resistant IB=Inducible Beta-lactamase. Appears in place of "Suceptible" with species known to possess inducible beta-lactamases. Potentially, they may become resistant to all beta-lactam drugs. Monitoring of p atients during/after therapy is recommended. Avoid other/combined beta- lactam drugs. 31 02/21/13 (WedFebruary 21) 03:52 PM [facility] 02-20-13: Patient started Keflex 250 mgs Po TID. STACIA Montanez 32 GENERAL COMMENTS: Greater than 100,000 CFU/ml, mixed urogenital vipin consisting of Viridans Streptococcus spp. No further identification or susceptibility performed, due to organism's questionable significance. --- S=Sensitive I=Intermediate R=Resistant IB=Inducible Beta-lactamase. Appears in place of "Suceptible" with species known to possess inducible beta-lactamases. Potentially, they may become resistant to all beta-lactam drugs. Monitoring of p atients during/after therapy is recommended. Avoid other/combined beta- lactam drugs. 33 GENERAL COMMENTS: 50,000-60,000 CFU/ml VIRIDAN STREPTOCOCCUS SPP. No further identification or susceptibility performed, due to organism's questionable significance. --- S=Sensitive I=Intermediate R=Resistant IB=Inducible Beta-lactamase. Appears in place of "Suceptible" with species known to possess inducible beta-lactamases. Potentially, they may become resistant to all beta-lactam drugs. Monitoring of p atients during/after therapy is recommended. Avoid other/combined beta- lactam drugs. 34 GENERAL COMMENTS: No further identification or susceptibility performed, due to organism's questionable significance. ORGANISM 1: ALPHA HEMOLYTIC STREPTOCOCCUS SPECIES COLONY COUNT: Greater than 100,000 CFU/mL GRAM STAIN: Gram Positive Cocci --- S=Sensitive I=Intermediate R=Resistant IB=Inducible Beta-lactamase. Appears in place of "Suceptible" with species known to possess inducible beta-lactamases. Potentially, they may become resistant to all beta-lactam drugs. Monitoring of p atients during/after therapy is recommended. Avoid other/combined beta- lactam drugs. Procedures Date Code Description Status 02/23/2019 42148 Bladder Scan, Post Voiding Residual Urine Completed 07/13/2018 18291 Ultrasound Retro Renal Real Time With Image Limited Tech Completed 07/13/2018 00363 Ultrasound Retro Renal Real Time With Image Limited Tech Completed 07/13/2017 56842 Ultrasound Retro Renal Real Time With Image Limited Global Completed 07/13/2017 78708 Bladder Scan, Post Voiding Residual Urine Completed 07/13/2016 50851 Bladder Scan, Post Voiding Residual Urine Completed 05/08/[address] Abdomen/Pelvis With W/Wo Contrast Completed 05/08/2016 62842 Cystourethroscopy, Separate Procedure Completed 03/25/2016 71765 Bladder Scan, Post Voiding Residual Urine Completed 07/12/2015 02711 Cystourethroscopy, Separate Procedure Completed 07/12/2015 89415 Bladder Scan, Post Voiding Residual Urine Completed 07/12/2015 90442 Urodynamics, Complex Uroflowmetry Eg Calibrated Electronic Completed Office 07/10/2014 08595 Urodynamics, Complex Uroflowmetry Eg Calibrated Electronic Completed Office 07/10/2014 65259 Urodynamics, Complex Uroflowmetry Eg Calibrated Electronic Completed Office 07/10/2014 98684 Bladder Scan, Post Voiding Residual Urine Completed 07/10/2014 84786 Bladder Scan, Post Voiding Residual Urine Completed 09/21/2012 36242 Bladder Scan, Post Voiding Residual Urine Completed 03/17/2012 15241 Ultrasound Pelvic With Image Documentation Completed 03/17/2012 43069 Ultrasound Pelvic With Image Documentation Completed 03/17/2012 16884 Urodynamics, Complex Uroflowmetry Eg Calibrated Electronic Completed Office 10/22/2011 74088 Ultrasonic Guidance For Needle Placement(Biopsy);Supervis Completed & Inter 10/22/2011 52006 Ultrasound,Prostate-Ultrasound Completed 10/22/2011 78192 Biopsy, Prostate, Needle Or Punch, Single Or Multiple, Any Completed Approa 09/28/2011 23272 Ultrasound, Pelvic Limited (Bladder US) Completed 09/28/2011 88103 Urodynamics, Complex Uroflowmetry Eg Calibrated Electronic Completed Office 03/02/2011 83568 Ultrasound Retro Renal Real Time With Image Completed 03/02/2011 68475 Cystourethroscopy, Separate Procedure Completed Encounters Type Date Location Provider Dx Diagnosis Office Visit 02/23/2019 [facility]/ Candelaria Infante, N20.0 Calculus of kidney 1:30p [facility] ANP-BC C.U.N.P. N28.1 Cyst of kidney, acquired R31.21 Asymptomatic microscopic hematuria N40.1 Benign prostatic hyperplasia with lower urinary tract symp R35.1 Nocturia N42.9 Disorder of prostate, unspecified R97.20 Elevated prostate specific antigen [PSA] Office Visit 07/13/2018 11:30a [facility] Candelaria Infante, N40.1 Benign prostatic Medical/ A.[facility]. ANP-BC C.U.N.P. hyperplasia with Urology lower urinary tract symp R35.1 Nocturia R97.20 Elevated prostate specific antigen [PSA] N42.9 Disorder of prostate, unspecified R31.1 Benign essential microscopic hematuria N28.1 Cyst of kidney, acquired N20.0 Calculus of kidney Office Visit 07/13/2017 11:30a [facility] Candelaria Infante, N40.1 Benign prostatic Medical/ A.M.[facility]. ANP-BC C.U.N.P. hyperplasia with Urology lower urinary tract symp R97.20 Elevated prostate specific antigen [PSA] R35.1 Nocturia R39.14 Feeling of incomplete bladder emptying N28.1 Cyst of kidney, acquired N20.0 Calculus of kidney R35.0 Frequency of micturition Office Visit 07/13/2016 11:00a [facility] Candelaria Infante, N40.1 Enlarged Medical/ [facility]. ANP-BC C.U.N.P. prostate with Urology lower urinary tract symptoms R31.2 Other microscopic hematuria R35.1 Nocturia N28.1 Cyst of kidney, acquired R97.2 Elevated prostate specific antigen [PSA] R39.14 Feeling of incomplete bladder emptying N42.9 Disorder of prostate, unspecified N20.0 Calculus of kidney N52.01 Erectile dysfunction due to arterial insufficiency Office Visit 05/08/2016 1:15p [facility]/ Lee Lucio MD R35.1 Nocturia [facility] Urology R31.0 Gross hematuria R35.0 Frequency of micturition N40.1 Enlarged prostate with lower urinary tract symptoms N20.0 Calculus of kidney R39.15 Urgency of urination R39.12 Poor urinary stream R31.1 Benign essential microscopic hematuria R97.2 Elevated prostate specific antigen [PSA] Office Visit 03/25/2016 10:30a Skip Candelaria Mega, R31.0 Gross hematuria Medical/ A.[facility]. ANP-BC C.U.N.P. Urology N40.1 Enlarged prostate with lower urinary tract symptoms R35.1 Nocturia Office Visit 07/12/2015 1:45p Skip Novak R31.1 Benign essential Medical/ A.M.P. MD Khadijah microscopic Urology hematuria R39.15 Urgency of urination R35.1 Nocturia R35.0 Frequency of micturition N40.1 Enlarged prostate with lower urinary tract symptoms N20.0 Calculus of kidney N52.01 Erectile dysfunction due to arterial insufficiency Office Visit 07/10/2014 11:00a Skip Infante, 790.93 Elevated Medical/ A.[facility]. ANP-BC C.U.N.P. 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 Prostate Specific Antigen (PSA) 602.9 Prostate Disorder Unspec 788.41 Urinary Frequency 788.63 Urgency Of Urination 599.72 Microscopic Hematuria Office Visit 09/21/2012 2:30p [facility] Candelaria Infante, 790.93 Elevated Urology ANP-BC C.U.N.P. Prostate Specific Antigen (PSA) 602.9 Prostate Disorder Unspec 788.4-1 Nocturia 607.84 Impotence Organic Origin 599.72 Microscopic Hematuria Office Visit 03/17/2012 2:00p [facility] Candelaria Infante, 600.00 Hypertrophy Urology ANP-BC Prostate W/O C.U.N.P. Urinary Obstruction & Other Luts 790.93 Elevated Prostate Specific Antigen (PSA) 602.9 Prostate Disorder Unspec 788.4-1 Nocturia 788.35 Incontinence Post Void Dribbling 607.84 Impotence Organic Origin Office Visit 10/22/2011 9:00a [facility] Lee Novak 790.93 Elevated MD Khadijah Prostate Specific Antigen (PSA) V71.1 Observation & Evaluation Malignant Neoplasm Suspected 959.09 Injury Face And Neck Office Visit 09/28/2011 10:45a [facility] Candelaria Infante, 790.93 Elevated Urology ANP-BC C.U.N.P. Prostate Specific Antigen (PSA) 607.84 Impotence Organic Origin 788.35 Incontinence Post Void Dribbling 600.00 Hypertrophy Prostate W/O Urinary Obstruction & Other Luts Office Visit 03/02/2011 2:30p [facility] Lee Novak 788.62 Urinary Stream MD Khadijah Slowing 788.41 Urinary Frequency 600.01 Hypertrophy Benign Of Prostate With Urinary Obstruction 599.60 Urinary Obstruction Unspecified Plan of Treatment Future Appointment(s):03/20/2019 10:15 am - Lee Lucio MD at [facility]/ A.M.P. 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 There are no right renal calcifications.Plan: Patient return for evaluation of microhematuria with CT imaging for further visualization of calcifications.N28.1 Cyst of kidney, acquiredNew Xrays:CT Abdomen & Pelvis W/O Contrast, Scheduled: Comments:Bilateral stable appearing renal cysts on limited retroperitoneal ultrasound today.Plan: Follow-up visit to include CT imaging.R31.21 Asymptomatic microscopic hematuriaNew Xrays:CT Abdomen & Pelvis W/O Contrast , Scheduled: 03/20/19Comments:Increase in microhematuria noted on urinalysis today. Patient denying any gross hematuria.Plan: Agreeable to return for evaluation of increasing microhematuria consisting of CT of the abdomen and pelvis and cystoscopy. Urine culture and cytology obtained and pending.N40.1 Benign prostatic hyperplasia with lower urinary tract symptoComments:Mild prostate enlarging symptoms stable at this time.Plan: Continue to monitor subsequent office visits.R35.1 PyzslrehU54.9 Disorder of prostate, unspecifiedComments:Elevated and fluctuating PSA with abnormal digital rectal examination. Continues to manage with Pamela daily.Plan: Follow-up visit to include repeat PSA and digital rectal exam.R97.20 Elevated prostate specific antigen [PSA]
[2019-03-24 08:07] VITALS: BP 154/73
--- NOTE | 2019-03-24 09:41 | UC ---
Complaint Male HPI - HPI Summary HPI Summary: 88-year-old male comes in with a chief complaint of increased urinary frequency and urgency. Patient does have a history of BPH and he is on a medication with Flomax and it. No fevers or chills does not burn when he urinates. Denies any suprapubic pain or flank pain or abdominal pain. Patient is not on any medications for diabetes. He has seen a urologist in the past. He reports she' s had some blood in his urine recently and the urologist wanted to get a CT scan of his abdomen and pelvis and also potentially do a scope if necessary. Feels well otherwise. - History of Current Complaint Chief Complaint: UCGU Stated Complaint: URINARY COMPLAINT Time Seen by Provider: 03/24/19 09:24 Pain Intensity: 0 - Allergies/Home Medications Allergies/Adverse Reactions: Allergies Allergy/AdvReac Type Severity Reaction Status Date / Time No Known Allergies Allergy Verified 03/15/18 08:17 PMH/Surg Hx/FS Hx/Imm Hx Previously Healthy: Yes - BPH Respiratory History: Asthma - Surgical History Surgical History: Yes Surgery Procedure, Year, and Place: GALL BLADDER REMOVAL,LAMINECTOMY,COLECTOMY, UPPER RIGHT LOBE PNEUMONECTOMY - Family History Known Family History: Positive: Unknown, Respiratory Disease - Social History Alcohol Use: Daily Alcohol Amount: 2 glasses wine Substance Use Type: None Smoking Status (MU): Former Smoker Type: Cigarettes Have You Smoked in the Last Year: No When Did the Patient Quit Smoking/Using Tobacco: 1975 - Immunization History Most Recent Influenza Vaccination: July 2015 Review of Systems All Other Systems Reviewed And Are Negative: Yes Constitutional: Positive: Negative Skin: Positive: Negative Eyes: Positive: Negative ENT: Positive: Negative Respiratory: Positive: Negative Cardiovascular: Positive: Negative Gastrointestinal: Positive: Negative Genitourinary: Positive: Frequency, Urgency. Negative: Dysuria Motor: Positive: Negative Neurovascular: Positive: Negative Musculoskeletal: Positive: Negative Neurological: Positive: Negative Psychological: Positive: Negative Is Patient Immunocompromised?: No Physical Exam Triage Information Reviewed: Yes Appearance: Well-Appearing, No Pain Distress, Well-Nourished Vital Signs: Initial Vital Signs Temp 97.3 F 03/24/19 08:01 Pulse 65 03/24/19 08:01 Resp 20 03/24/19 08:01 BP 154/73 03/24/19 08:01 Pulse Ox 100 03/24/19 08:01 Vital Signs Reviewed: Yes Eye Exam: Normal Eyes: Positive: Conjunctiva Clear Neck: Positive: Supple Respiratory: Positive: Lungs clear, Normal breath sounds, No respiratory distress Cardiovascular: Positive: RRR Abdomen Description: Positive: Nontender, Soft. Negative: CVA Tenderness (R), CVA Tenderness (L) Musculoskeletal Exam: Normal Musculoskeletal: Positive: Strength Intact, ROM Intact Neurological Exam: Normal Neurological: Positive: Alert, Muscle Tone Normal Psychological Exam: Normal Psychological: Positive: Age Appropriate Behavior Skin Exam: Normal Complaint Male Course/Dx - Course Course Of Treatment: The patient is only complaining of increased urinary urgency and frequency the patient is only complaining of increased urinary urgency and frequency. No fevers no chills no burning with urination. No suprapubic pain or no flank pain. We will treat with Bactrim for the possibility of a prostatitis. Urine is sent for culture. Fingerstick blood sugar was 124 which is not high enough to cause polyuria. Also checking a CBC and CMP to ensure normal kidney functions and no signs of infection. Patient does have a urologist and he'll be following up with his primary care doctor and his urologist. I let him know if anything at worsening to get reevaluated sooner. - Differential Dx/Diagnosis Provider Diagnosis: Increased urinary frequency, Hyperglycemia Discharge - Sign-Out/Discharge Documenting (check all that apply): Patient Departure All imaging exams completed and their final reports reviewed: No Studies - Discharge Plan Condition: Stable Disposition: HOME Prescriptions: Sulfamethox/Trimethoprim DS* [Bactrim DS 800/160 TAB*] 1 tab PO BID #20 tab Patient Education Materials: Urinary Urgency and Frequency (DC), Nondiabetic Hyperglycemia (ED) Referrals: Kyle Martin MD [Primary Care Provider] - Additional Instructions: FOLLOW UP WITH YOUR PRIMARY CARE DOCTOR AND UROLOGIST. GET RECHECKED SOONER IF YOUR CONDITION WORSENS; PAIN, FEVER, DIFFICULTY URINATING, YOU FEEL ILL OR ANY QUESTIONS OR CONCERNS. - Billing Disposition and Condition Condition: STABLE Disposition: Home
[2019-03-24 14:37] LABS: ABS Eosinophils 0.2 10^3/ul (0-0.6); ABS Lymphocytes 1.2 10^3/ul (1.0-4.8); ABS Monocytes 0.3 10^3/ul (0-0.8); Eosinophil % 2.3 %; Hematocrit 46 % (42-52); Hemoglobin 16.2 g/dL (14.0-18.0); Lymphocyte % 17.9 %; Mean Corpuscular HGB Conc 35 g/dL (31-36); Mean Corpuscular Hemoglobin 33 pg (27-31); Mean Corpuscular Volume 94 fL (80-94); Mean Platelet Volume 8.9 fL (7.4-10.4); Nucleated Red Blood Cells % 0.2; Platelet Count 182 10^3/uL (150-450); Red Blood Count 4.87 10^6 /uL (4.18-5.48); Red Cell Distribution Width 13 % (10-15); White Blood Count 6.7 10^3/uL (3.5-10.8)
[2019-03-24 15:01] LABS: Albumin 4.4 g/dL (3.2-5.2); EGFR African American 85.7 (>60); EGFR Non-African American 70.8 (>60); Globulin 2.2 g/dL (2-4); Potassium 4.5 mmol/L (3.5-5.0); Total Bilirubin 0.9 mg/dL (0.2-1.0); Total Protein 6.6 g/dL (6.4-8.9)
== END 2019-03-24 10:10 | disposition home or self-care (01) ==
LOC: UCCORT 07:45
DX: R35.0 Frequency of micturition (principal); R73.9 Hyperglycemia, unspecified; Z87.891 Personal history of nicotine dependence
CPT/HCPCS: 36415; 80053; 81003; 85025; 87086; 99212; G0463

== ENCOUNTER 2019-07-15 11:10 | Emergency (ER) | payer OTHER ==
--- OUTSIDE RECORDS SUMMARY | 2019-07-15 11:27 | XMS REPORT | Continuity of Care Document ---
:1930 External Reference #:[id number] Author Name Roscoe Guevara M.D. (transmitted by agent of provider Kaylyn Zhang) Address [address] [place] [address] Care Team Providers Name Role Phone Kyle Martin MD - Family Care Team Information [employer] Worker Medicine Problems Description No Information Available Social History Type Date Description Comments Sex Unknown Tobacco Use Start: Unknown End: Used To Smoke Cigarettes But Unknown Quit. ETOH Use Current Alcohol Use - 1-3 Days A Week. Recreational Drug Use Never Used Drugs Tobacco Use Start: Unknown End: Patient is a former smoker Unknown Allergies, Adverse Reactions, Alerts Description No Known Drug Allergies Medications Active Medications SIG Qnty Indications Ordering Provider Date Omeprazole 1 by mouth every 30caps Roscoe Guevara M.D. 04/07/2017 40mg day Capsules Telmisartan Once Daily Unknown 03/30/2015 40mg Tablets Pamela 1 po qd Unknown 0.5-0.4mg Capsules Simvastatin 1 by mouth every Unknown 40mg day Tablets Symbicort 2 puff twice a Unknown day 160-4.5mcg/Act Aerosol Proair HFA 2puffs four Unknown 108(90Base) times a day as mcg/Act Aerosol needed for sob Aspirin 1 by mouth every Unknown 81mg Tablets DR nicole Immunizations Description No Information Available Vital Signs Date Vital Result Comment 06/22/2019 1:31pm Weight 242.00 lb Height 72 inches 6'0" BMI (Body Mass Index) 32.8 kg/m2 BP Systolic 128 mmHg BP Diastolic 71 mmHg Heart Rate 95 /min O2 % BldC Oximetry 95 % Body Temperature 97.0 F Pain Level 0 07/12/2017 3:50pm Weight 234.00 lb Height 72 inches 6'0" BMI (Body Mass Index) 31.7 kg/m2 BP Systolic 148 mmHg BP Diastolic 77 mmHg Heart Rate 97 /min O2 % BldC Oximetry 94 % Body Temperature 97.9 F Pain Level 0 Results Description No Information Available Procedures Date Code Description Status 04/04/2015 335268215 Bone Mineral Density Test Completed 04/04/2015 593852255 Diabetic Retinal Eye Exam Completed 04/04/2015 860584601 Diabetic Foot Exam Completed 03/28/2015 744497986 Bone Mineral Density Test Completed 03/28/2015 199871796 Diabetic Retinal Eye Exam Completed 03/28/2015 768213679 Diabetic Foot Exam Completed 03/25/2015 556223767 Bone Mineral Density Test Completed 03/25/2015 250298300 Diabetic Retinal Eye Exam Completed 03/25/2015 582967836 Diabetic Foot Exam Completed 03/21/2015 835386102 Bone Mineral Density Test Completed 03/21/2015 304305819 Diabetic Retinal Eye Exam Completed 03/21/2015 934577530 Diabetic Foot Exam Completed Medical Devices Description No Information Available Encounters Description No Information Available Assessments Description No Information Available Plan of Treatment 07/05/2015 - Terrence Hagan MDK59.00 Constipation, unspecifiedComments:Advised him to continue ensure, smoothie, metamucil, prune juice and mylanta daily. Also, keep on ambulating actively. If any problem, RTO PRN.He is in the process of changing the primary doctor since Dr. Anen is apparently leaving [place]. Gave [facility] doctors list as well as Dr. Garcia and Dr. Metzger. Functional Status Description No Information Available Mental Status Description No Information Available Referrals Description No Information Available
--- OUTSIDE RECORDS SUMMARY | 2019-07-15 11:27 | XMS REPORT | Continuity of Care Document ---
:1930 Author Name Engineering Operator, System Address Unavailable Unavailable , Care Team Providers Name Role Phone Ilir RAIN, Kyle Caicedo Unavailable Ty Schulz MD Unavailable ZZZ, Needed Unavailable Unavailable Omid RAIN, Christopher Nunn Unavailable Tonny SOFTWARE RELIABILITY ENGINEER, Harjeet Unavailable Unavailable Yanet SOFTWARE RELIABILITY ENGINEER, Ariadna Unavailable Unavailable Charles WASHINGTONN, Crystal Unavailable Unavailable Cade WASHINGTONN, Angela Unavailable Unavailable Cielo BUSTOS, Latasha Unavailable Vilma Walls Unavailable Unavailable Osmani WASHINGTONN, Manuel Unavailable Unavailable Unavailable Unavailable Problems ASTHMA (J45.909) (493.90) MD Ty Schulz Prognosis: stable PFT. No change in medication. Call with any problems and RTO in 6 months. as of 07-May-2016 ASTHMA (J45.909) (493.90) JULI Buck Prognosis: Patient was evaluated in the office today in routine follow up. Patient symptoms at baseline. Physical exam and spirometry reviewed and noted to be stable. Noted to be doing well with current treatment. Compliance with medications discussed and encouraged. Recommendations for avoidance of environmental triggers discussed and step mortensen approach reviewed. Will continue current treatment regime and cont act office if experiences any difficulties with therapy or an increase in symptoms. The patient was reminded to obtain an influenza shot annually.The patient was discussed and approved by Dr. Ty Ashford. 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 Plan is for CT with follow -up with Dr. Guerra. as of 30-May-2019 BPH (BENIGN PROSTATIC HYPERTROPHY) (N40.0) (600.00) Cielo, JULI Pagan COLON CANCER (C18.9) (153.9) JULI Buck HYPERTENSION (Renamed from BP (HIGH BLOOD PRESSURE)) (I10) (401.9) Cielo, JULI Pagan PSORIASIS (L40.9) (696.1) Harpalscraffy, NPC Latasha Allergies and Adverse Reactions Altace *ANTIHYPERTENSIVES* (Allergy) Reaction: Cough PriLOSEC *ULCER DRUGS* (Allergy) Reaction: Nausea, Vomiting Medications ASPIRIN EC, 81MG (Oral Tablet Delayed Release); daily (81 MG) SNEHAL, 0.5-0.4MG (Oral Capsule); 1 Daily (0.5-0.4 MG) Meclizine HCl 12.5 MG Oral Comments: Medication taken as Tablet; 1 as needed (12.5 MG) needed. ProAir HFA 108 (90 Base) MCG/ACT Inhalation Aerosol Solution; 2 Aerosol Soln four times daily as needed for 90 days Ordered: 30-May-2019 Start: 30-May-2019 Quantity: 3 {Inhaler_Refill} Harpalheatherraffy, JULI Pagan Comments: Medication taken as needed. Refills: 3 SIMVASTATIN, 40MG (Oral Tablet); daily (40 MG) Symbicort 160-4.5 MCG/ACT Inhalation Aerosol; 2 puffs Aerosol two times daily for 90 days Ordered: 30-May-2019 Start: 30-May-2019 Quantity: 3 {Inhaler} Harpalzoie, NPC Latasha Refills: 3 Telmisartan 80 MG Oral Tablet; 1 daily (80 MG) FLOMAX, 0.4MG (Oral Capsule); 1 Status: Inactive daily (0.4 MG) MEDROL (TERRA), 4MG (Oral Tablet); 1 (one) terra UAD for 6 days Ordered: 2011 Start: 14-Oct-2012 End: 20-Oct-2012 Quantity: 1 {Tablet} FIOR Mohamud Status: Inactive Refills: 0 METOPROLOL SUCCINATE, 25MG (Oral Status: Inactive Tablet Extended Release 24 Hour); 1 daily (25 MG) MICARDIS, 20MG (Oral Tablet); 1 Status: Inactive daily (20 MG) ADVAIR DISKUS, 100-50MCG/DOSE (Inhalation Aerosol Powder Breath Activated); 1 Aero Pow Br Act two times daily for 90 days Ordered: 30-May-2013 Start: End: 13-Nov-2013 Quantity: 180 {Aero_Pow_Br_Act} FIOR Lancaster Status: Discontinued Refills: 3 ADVAIR DISKUS, 100-50MCG/DOSE (Inhalation Aerosol Powder Breath Activated); 1 Aero Pow Br Act two times daily for 90 days Ordered: 30-May-2013 Start: End: 13-Nov-2013 Quantity: 180 {Aero_Pow_Br_Act} FIOR [place] Status: Discontinued Refills: 3 COMBIVENT, 18-103MCG/ACT (Inhalation Aerosol); 2 four times daily, as needed for 0 days Ordered: 23-Apr-2015 Start: 23-Apr-2015 End: 07-May-2016 Refills: 0 Status: Discontinued Comments: Medication taken as needed. This order discontinued per Medi- Span. Procedures TOTAL VITAL CAPACITY (36891) Status: Completed 30-May-2019 THORACIC GAS VOLUME (25135) Status: Completed 30-May-2019 DLCO (CARBON MONOXIDE DIFFUSING CAPACITY) (72924) Status: Completed 2018 AIRFLOW RESISTANCE MEASUREMENT (18160) Status: Completed 30-May-2019 PRE/POST (59188) Status: Completed 30-May-2019 RESPIRATORY FLOW VOLUME LOOP ([id number]) Status: Completed 24-May-2018 PRE/POST W/ RT (93834) Status: Completed 24-May-2018 RESPIRATORY FLOW VOLUME LOOP (34296) Status: Completed 04-May-2017 Pre/Post (92218) Status: Completed 04-May-2017 REST OXIMETRY (53601) Status: Completed 04-May-2017 RESPIRATORY FLOW VOLUME LOOP ([id number]) Status: Completed 23-Apr-2015 Pre/Post ([id number]) Status: Completed 23-Apr-2015 EXERCISE OXIMETRY (45592) Status: Completed 23-Apr-2015 PRE AND POST (93541) Status: Completed 12-Sep-2013 RESPIRATORY FLOW VOLUME LOOP (56787) Status: Completed 12-Sep-2013 REST/ EXERCISE OXIMETRY (00739) Status: Completed 12-Sep-2013 RESPIRATORY FLOW VOLUME LOOP (09261) Status: Completed 25-Aug-2012 REST OXIMETRY (99102) Status: Completed 25-Aug-2012 EXERCISE OXIMETRY (05615) Status: Completed 25-Aug-2012 Pre/Post (84777) Status: Completed 25-Aug-2012 Colon Removal - Partial Status: Completed Comments: S/P Colon Cancer Flu Vaccine Status: Completed 18-Jun-2016 Comments: 07/2017 Flu Vaccine Status: Completed Jun-2018 Lung Surgery - Right Status: Completed Comments: SHANICE Guerra Prev 13 Status: Completed 2014 Comments: [facility] CHEST X-RAY, PA AND LATERAL ([id number])Result: Are you Status: Completed 2011 or could you become ?: No; Fire Range Technician: MICHAEL Jalloh Immunizations Influenza (3 years and up) Not Administered Patient Objection Influenza (3 years and up) Not Administered Patient Objection Influenza (3 years and up) On: 18-Jul-2016 Comments:[place] [facility] Family History Lung/Respiratory Disease Status: Active Comments: Negative Family History Of. Social History Alcohol use: Occasional alcohol use. Caffeine use: 2 servings / day. Current work status: Retired. Comments: Chiropractor Marital status: . Tobacco use: Former smoker. Has been smoking for 30 Comments: 1 PPD (Quit in 1975) years. Former smoker Smoker. current status unknown Male Plan of Treatment PRE/POST W/ RT ([id number]) Start: 29-May-2020 Intent Medical; PRE AND POST RT - Start: 04-Jun-2020 9:45 Appointment Request [facility] [place]; FOLLOW UP 30 - 1YR FU 30,PPRT Start: 04-Jun-2020 10:00 Appointment Request [facility] JULI Buck ASTHMA : Avoid triggers Indication:ASTHMA ASTHMA : Influenza vaccine seasonally Indication:ASTHMA ASTHMA : Medication compliance reinforced Indication:ASTHMA ASTHMA : Avoid triggers Indication:ASTHMA ASTHMA : Avoid triggers Indication:ASTHMA ASTHMA : Avoid triggers Indication:ASTHMA ASTHMA : Influenza vaccine seasonally Indication:ASTHMA ASTHMA : Medication compliance reinforced Indication:ASTHMA ASTHMA : Influenza vaccine seasonally Indication:ASTHMA ASTHMA : Medication compliance reinforced Indication:ASTHMA ASTHMA : Influenza vaccine seasonally Indication:ASTHMA ASTHMA : Medication compliance reinforced Indication:ASTHMA ASTHMA : Influenza vaccine seasonally Indication:ASTHMA ASTHMA : Medication compliance reinforced Indication:ASTHMA Results No Known Results No Result Information Available Vital Signs 30-May-2019 9:16 Temperature 97.9 f Comments: Method: Temporal Pulse 66 /min Comments: Pattern: Regular Respiration Rate 14 /min Comments: Pattern: Unlabored O2 SAT 97 % Comments: Room air BP Systolic 128 mm[Hg] Comments: Patient Position: Sitting; Cuff Location: Left Arm; Cuff Size: Standard BP Diastolic 70 mm[Hg] Comments: Patient Position: Sitting; Cuff Location: Left Arm; Cuff Size: Standard Weight 242 lb Height 71 in BMI 33.75 kg/m2 BSA 2.29 m2 24-May-2018 15:28 Temperature 97.8 f Comments: Method: Tympanic Pulse 90 /min Comments: Pattern: Regular Respiration Rate 12 /min Comments: Pattern: Unlabored O2 SAT 96 % Comments: Room air BP Systolic 128 mm[Hg] Comments: Patient Position: Sitting; Cuff Location: Left Arm; Cuff Size: Standard BP Diastolic 60 mm[Hg] Comments: Patient Position: Sitting; Cuff Location: Left Arm; Cuff Size: Standard Weight 243 lb Height 71 in BMI 33.89 kg/m2 BSA 2.29 m2 04-May-2017 14:36 Temperature 98.6 f Comments: Method: Tympanic Pulse 84 /min Comments: Pattern: Regular Respiration Rate 14 /min Comments: Pattern: Unlabored O2 SAT 98 % Comments: Room air BP Systolic 130 mm[Hg] Comments: Patient Position: Sitting; Cuff Location: Left Arm; Cuff Size: Standard BP Diastolic 66 mm[Hg] Comments: Patient Position: Sitting; Cuff Location: Left Arm; Cuff Size: Standard Weight 242 lb Height 71 in BMI 33.75 kg/m2 BSA 2.29 m2 07-May-2016 14:12 Temperature 96.9 f Comments: Method: Tympanic Pulse 84 /min Comments: Pattern: Regular Respiration Rate 12 /min Comments: Pattern: Unlabored O2 SAT 94 % Comments: Room air BP Systolic 130 mm[Hg] Comments: Patient Position: Sitting; Cuff Location: Left Arm; Cuff Size: Standard BP Diastolic 68 mm[Hg] Comments: Patient Position: Sitting; Cuff Location: Left Arm; Cuff Size: Standard Weight 238 lb Height 71 in BMI 33.19 kg/m2 BSA 2.27 m2 23-Apr-2015 11:33 Temperature 97.7 f Comments: Method: Tympanic Pulse 71 /min Comments: Pattern: Regular Respiration Rate 15 /min Comments: Pattern: Unlabored O2 SAT 96 % Comments: Room air BP Systolic 130 mm[Hg] Comments: Patient Position: Sitting; Cuff Location: Left Arm; Cuff Size: Large BP Diastolic 70 mm[Hg] Comments: Patient Position: Sitting; Cuff Location: Left Arm; Cuff Size: Large Weight 231 lb Height 71 in BMI 32.22 kg/m2 BSA 2.24 m2 12-Sep-2013 12:43 Temperature 98.3 f Comments: Method: Tympanic Pulse 75 /min Comments: Pattern: Regular Respiration Rate 16 /min Comments: Pattern: Unlabored O2 SAT 98 % Comments: Room air BP Systolic 112 mm[Hg] Comments: Patient Position: Sitting; Cuff Location: Left Arm; Cuff Size: Large BP Diastolic 60 mm[Hg] Comments: Patient Position: Sitting; Cuff Location: Left Arm; Cuff Size: Large Weight 242 lb Height 71 in BMI 33.75 kg/m2 BSA 2.29 m2 25-Aug-2012 12:02 Comments: Exercise Oximetry: 97% RA Temperature 97.2 f Comments: Method: Tympanic Pulse 61 /min Comments: Pattern: Regular Respiration Rate 14 /min Comments: Pattern: Unlabored O2 SAT 97 % Comments: Room air BP Systolic 130 mm[Hg] Comments: Patient Position: Sitting; Cuff Location: Left Arm; Cuff Size: Standard BP Diastolic 68 mm[Hg] Comments: Patient Position: Sitting; Cuff Location: Left Arm; Cuff Size: Standard Weight 231 lb Height 71 in BMI 32.22 kg/m2 BSA 2.24 m2 22-Feb-2012 14:04 Temperature 97.7 f Comments: Method: Tympanic Pulse 80 /min Comments: Pattern: Regular Respiration Rate 18 /min Comments: Pattern: Unlabored O2 SAT 96 % Comments: Room air BP Systolic 128 mm[Hg] Comments: Patient Position: Sitting; Cuff Location: Left Arm; Cuff Size: Standard BP Diastolic 60 mm[Hg] Comments: Patient Position: Sitting; Cuff Location: Left Arm; Cuff Size: Standard Weight 231 lb Height 71 in BMI 32.22 kg/m2 BSA 2.24 m2 Advance Directives HIPAA - Effective on 05/04/2017. Expiration date unspecified. Effective: 18-Chaparro -2017 Scanned Document is available upon request. Encounters Office Visit 30-May-2019 9:15 To 30-May-2019 10:23 Encounter Reason: ASTHMA, FOLLOW UP - The patient's long-term asthma pattern may be classified as mild persistent. The [facility] Office last clinic visit was 12 month(s) ago. Management changes made at the last visit include adding a course of antibiotics and prednisone (when he has exposed to [place] and pollen in [place]). The patient's asthma causes daytime symptoms 1 to 2 times per week. The patient's asthma is not disturbing sleep. Symptoms include shortness of breath and non-productive cough. The patient describes the difficulty br eathing as dyspnea on exertion. Onset of symptoms was gradual year(s) ago. Onset followed symptoms of an upper respiratory infection. The symptoms occur mostly during the daytime. The episodes occur wee kly. The patient describes this as mild and unchanged. Symptoms are exacerbated by activity. Symptoms are relieved by inhaler use and rest. Associated symptoms include allergy symptoms. Current treatmen t includes inhaled albuterol, inhaled long-acting beta-2 agonists and inhaled corticosteroids. Bronchodilator use is staying the same (2x's weekly). By report there is good compliance with treatment, go od tolerance of treatment and good symptom control. Pertinent medical history includes gastroesophageal reflux and hypertension (Lung CA for which he has been being monitored by Dr. Romero and did have a recurrence in 2016. He has a follow-up CT at the end of this month (May 2019)). The patient is currently able to do activities of daily living with limitations, able to do housework with limitati ons and able to participate in sports with limitations. The patient was previously evaluated in this clinic 1 year(s) ago. Previous presentation included shortness of breath. Past evaluation has include d spirometry, pulmonary function testing, a methacholine challenge, chest CT, pulmonology consultation and a specialist evaluation (thoracic surgery). Encounter Diagnosis: ASTHMA Office Visit 24-May-2018 15:30 To 24-May-2018 16:39 Encounter Reason: ASTHMA, FOLLOW UP - The patient's long-term asthma pattern may be classified as mild persistent. The [facility] Office last clinic visit was 12 month(s) ago. No changes in management were made at the last visit. The patient's asthma causes daytime symptoms 1 to 2 times per week. The patient's asthma is not disturbing sl ee. Symptoms include shortness of breath and non-productive cough. The patient describes the difficulty breathing as dyspnea on exertion. Onset of symptoms was gradual year(s) ago. Onset followed sympt oms of an upper respiratory infection. The symptoms occur mostly during the daytime. The episodes occur weekly. The patient describes this as mild and unchanged. Symptoms are exacerbated by activity. Sy mptoms are relieved by inhaler use and rest. Associated symptoms include allergy symptoms. Current treatment includes inhaled albuterol, inhaled long- acting beta-2 agonists and inhaled corticosteroids. Bronchodilator use is staying the same. By report there is good compliance with treatment, good tolerance of treatment and good symptom control. Pertinent medical history includes gastroesophageal reflu x and hypertension (Lung CA for which he has been being monitored by Dr. Romero and did have a recurrence in 2017. He had a recent CT scan with his office records being requested.). The patient is cur rently able to do activities of daily living with limitations, able to do housework with limitations and able to participate in sports with limitations. The patient was previously evaluated in this clin ic 1 year(s) ago. Previous presentation included shortness of breath. Past evaluation has included spirometry, pulmonary function testing, a methacholine challenge, chest CT, pulmonology consultation and a specialist evaluation ( thoracic surgery). Encounter Diagnosis: ASTHMA Office Visit 04-May-2017 14:28 To 04-May-2017 15:24 Encounter Reason: ASTHMA, FOLLOW UP - The patient's long-term asthma pattern may be classified as mild persistent. The [facility] Office last clinic visit was 12 month(s) ago. Management changes made at the last visit include adding a CT which showed no evidence of of recurrence of bronchiogenic carcinoma (he also had a course of prednis one when he had acute symptoms after pollen exposure in [place] The patient's asthma causes daytime symptoms 1 to 2 times per week. The patient's asthma is not disturbing sleep. Symptoms include shortness of breath and non-productive cough. The patient describes the difficulty breathing as dyspnea on exertion. Onset of symptoms was gradual year(s) ago. Onset followed symptoms of an upper respiratory inf ection. The symptoms occur mostly during the daytime. The episodes occur weekly. The patient describes this as mild and unchanged. Symptoms are exacerbated by activity. Symptoms are relieved by inhaler use and rest. Associated symptoms include allergy symptoms. Current treatment includes inhaled albuterol, inhaled long-acting beta-2 agonists and inhaled corticosteroids. Bronchodilator use is staying t he same. By report there is good compliance with treatment, good tolerance of treatment and good symptom control. Pertinent medical history includes gastroesophageal reflux and hypertension (Lung CA for which he has been in remission for over 5 years he was treated and had a right upper resection). The patient is currently able to do activities of daily living with limitations, able to do housework wi th limitations and able to participate in sports with limitations. The patient was previously evaluated in this clinic 1 year(s) ago. Previous presentation included shortness of breath. Past evaluation has included spirometry, pulmonary function testing, a methacholine challenge, chest CT, pulmonology consultation and a specialist evaluation (thoracic surgery ). Encounter Diagnosis: ASTHMA Office Visit 07-May-2016 13:08 To 07-May-2016 15:11 Encounter Reason: ASTHMA, FOLLOW UP - The patient's long-term asthma pattern may be classified as mild persistent. The [facility] Office last clinic visit was 8 month(s) ago. Management changes made at the last visit include adding a CT which showed no evidence of of recurrence of bronchiogenic carcinoma. The patient's asthma causes dayt lisa symptoms 1 to 2 times per week. The patient's asthma is not disturbing sleep. Symptoms include shortness of breath and non-productive cough. The patient describes the difficulty breathing as dyspnea on exertion. Onset of symptoms was gradual year(s) ago. Onset followed symptoms of an upper respiratory infection. The symptoms occur mostly during the daytime. The episodes occur weekly. The patient d escribes this as mild and unchanged. Symptoms are exacerbated by activity. Symptoms are relieved by inhaler use and rest. Associated symptoms include allergy symptoms. Current treatment includes inhaled albuterol, inhaled long-acting beta-2 agonists and inhaled corticosteroids. Bronchodilator use is staying the same. By report there is good compliance with treatment, good tolerance of treatment and go od symptom control. Pertinent medical history includes gastroesophageal reflux and hypertension. The patient is currently able to do activities of daily living with limitations, able to do housework wit h limitations and able to participate in sports with limitations. The patient was previously evaluated in this clinic 8 month(s) ago. Previous presentation included shortness of breath. Past evaluation has included spirometry, pulmonary function testing, a methacholine challenge, chest CT, pulmonology consultation and a specialist evaluation (thoracic surgery ). Note for "Follow-up for asthma": AprilMr Lui is here to follow up on asthma and COPD. He states his symptoms are under good control. He has rare episodes of SOB when he walks for long distances. He has occasional cough at night. No fever, chills or coughing up blood. He uses symbicort and prn proair. He uses proair very rarely. He was recently evaluated by Dr Guerra s/p lung cancer resection in the right upper lobe and he remains cancer free for the last 5 years. Encounter Diagnosis: ASTHMA Office Visit 23-Apr-2015 12:30 To 23-Apr-2015 14:34 Encounter Reason: ASTHMA, FOLLOW UP - The patient's long-term asthma pattern may be classified as mild persistent. The [facility] Office last clinic visit was 8 month(s) ago. Management changes made at the last visit include adding a CT which showed no evidence of of recurrence of bronchiogenic carcinoma. The patient's asthma causes dayt lisa symptoms 1 to 2 times per week. The patient's asthma is not disturbing sleep. Symptoms include shortness of breath and non-productive cough. The patient describes the difficulty breathing as dyspnea on exertion. Onset of symptoms was gradual year(s) ago. Onset followed symptoms of an upper respiratory infection. The symptoms occur mostly during the daytime. The episodes occur weekly. The patient d escribes this as mild and unchanged. Symptoms are exacerbated by activity. Symptoms are relieved by inhaler use and rest. Associated symptoms include allergy symptoms. Current treatment includes inhaled albuterol, inhaled long-acting beta-2 agonists and inhaled corticosteroids. Bronchodilator use is staying the same. By report there is good compliance with treatment, good tolerance of treatment and go od symptom control. Pertinent medical history includes gastroesophageal reflux and hypertension. The patient is currently able to do activities of daily living with limitations, able to do housework wit h limitations and able to participate in sports with limitations. The patient was previously evaluated in this clinic 8 month(s) ago. Previous presentation included shortness of breath. Past evaluation has included spirometry, pulmonary function testing, a methacholine challenge, chest CT, pulmonology consultation and a specialist evaluation (thoracic surgery ). Encounter Diagnosis: ASTHMA Medication Order 13-Nov-2013 13:17 To 14-Nov-2013 10:00 Encounter Diagnosis: CHRONIC OBSTRUCTIVE PULMONARY DISEASE [facility] Office Visit 12-Sep-2013 12:30 To 12-Sep-2013 13:38 Encounter Reason: COPD - The referring provider is Dr. SALDANA. The last office visit was 10 month(s) ago. Management ch [facility] anges made at the last visit include ordering T SURGERY CONSULT (RUL ADENO CA DONE THORASCOPIC RESECTION). 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 Symptoms include wheezing, while symptoms do not include dyspnea, dyspnea at rest, dyspnea on exertion, non-productive cough, productive cough, clear sputum production, colored sputum production, increased sputum production or change in sputum qualit y. Onset was gradual. There is no known event that preceded symptom onset. The episodes occur monthly. The patient describes this as mild and improving. Symptoms are exacerbated by activity. Symptoms ar e relieved by inhaler use and rest, while symptoms are not relieved by recumbency, the upright position or cough suppressants. Associated symptoms do not include fever, weakness, general malaise, hemopt ysis, leg edema, orthopnea, upper respiratory infection symptoms, chest pain or altered mental status. Current treatment includes inhaled albuterol, inhaled long-acting beta-2 agonists and inhaled corti costeroids. By report there is good compliance with treatment, good tolerance of treatment and good symptom control. Pertinent medical history includes smoking (has quit), pneumonia ([place]) and pattie g cancer, while pertinent medical history does not include smoking (currently) , oxygen dependency, steroid dependency, asthma, prior intubation and ventilator therapy, tracheostomy, congestive heart dominik lure, cor pulmonale, obstructive sleep apnea, impaired immunity or alpha-1 antitrypsin deficiency. The patient has been exposed to secondhand smoke, while the patient has not been exposed to occupationa l exposure to dust. The patient is currently able to do activities of daily living without limitations and able to do housework with limitations. Past evaluation has included chest x-ray and chest CT. P ast treatment has included inhaled albuterol, inhaled long-acting beta-2 agonists and inhaled corticosteroids. Note for "COPD": 08/25/2012Patient here for routine follow-up for COPD. Since his last a ppointment in February he has not had any upper respiratory infections requiring the use of antibiotics or oral corticosteroid use. He states that his symptoms are well controlled with Advair. The pa govind states that he gets winded with moderate exertion that is relieved by rest. 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 09/12Carlos is here in routine follow-up for COPD. He has not had any recent exacerbations and is doing well with his current therapy. 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 SALDANA. The last office visit was 10 month(s) ago. Management ch [facility] anges made at the last visit include ordering T SURGERY CONSULT (RUL ADENO CA DONE THORASCOPIC RESECTION). 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 Symptoms include wheezing, while symptoms do not include dyspnea, dyspnea at rest, dyspnea on exertion, non-productive cough, productive cough, clear sputum production, colored sputum production, increased sputum production or change in sputum qualit y. Onset was gradual. There is no known event that preceded symptom onset. The episodes occur monthly. The patient describes this as mild and improving. Symptoms are exacerbated by activity. Symptoms ar e relieved by inhaler use and rest, while symptoms are not relieved by recumbency, the upright position or cough suppressants. Associated symptoms do not include fever, weakness, general malaise, hemopt ysis, leg edema, orthopnea, upper respiratory infection symptoms, chest pain or altered mental status. Current treatment includes inhaled albuterol, inhaled long-acting beta-2 agonists and inhaled corti costeroids. By report there is good compliance with treatment, good tolerance of treatment and good symptom control. Pertinent medical history includes smoking (has quit), pneumonia (IN [place]) and pattie g cancer, while pertinent medical history does not include smoking (currently) , oxygen dependency, steroid dependency, asthma, prior intubation and ventilator therapy, tracheostomy, congestive heart dominik lure, cor pulmonale, obstructive sleep apnea, impaired immunity or alpha-1 antitrypsin deficiency. The patient has been exposed to secondhand smoke, while the patient has not been exposed to occupationa l exposure to dust. The patient is currently able to do activities of daily living without limitations and able to do housework with limitations. Past evaluation has included chest x-ray and chest CT. P ast treatment has included inhaled albuterol, inhaled long-acting beta-2 agonists and inhaled corticosteroids. Note for "COPD": 08/25/2012Patient here for routine follow-up for COPD. Since his last appo intment in February he has not had any upper respiratory infections requiring the use of antibiotics or oral corticosteroid use. He states that his symptoms are well controlled with Advair. The patient sta abdias that he gets winded with moderate exertion that is relieved by rest. 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 SALDANA. The last office visit was 10 month(s) ago. Management ch [facility] Office anges made at the last visit include ordering T SURGERY CONSULT (RUL ADENO CA DONE THORASCOPIC RESECTION). 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 Symptoms include wheezing, while symptoms do not include dyspnea, dyspnea at rest, dyspnea on exertion, non-productive cough, productive cough, clear sputum production, colored sputum production, increased sputum production or change in sputum qualit y. Onset was gradual. There is no known event that preceded symptom onset. The episodes occur monthly. The patient describes this as mild and improving. Symptoms are exacerbated by activity. Symptoms ar e relieved by inhaler use and rest, while symptoms are not relieved by recumbency, the upright position or cough suppressants. Associated symptoms do not include fever, weakness, general malaise, hemopt ysis, leg edema, orthopnea, upper respiratory infection symptoms, chest pain or altered mental status. Current treatment includes inhaled albuterol, inhaled long-acting beta-2 agonists and inhaled corti costeroids. By report there is good compliance with treatment, good tolerance of treatment and good symptom control. Pertinent medical history includes smoking (has quit), pneumonia (IN [place]) and pattie g cancer, while pertinent medical history does not include smoking (currently) , oxygen dependency, steroid dependency, asthma, prior intubation and ventilator therapy, tracheostomy, congestive heart dominik lure, cor pulmonale, obstructive sleep apnea, impaired immunity or alpha-1 antitrypsin deficiency. The patient has been exposed to secondhand smoke, while the patient has not been exposed to occupationa l exposure to dust. The patient is currently able to do activities of daily living without limitations and able to do housework with limitations. Past evaluation has included chest x-ray and chest CT. P ast treatment has included inhaled albuterol, inhaled long-acting beta-2 agonists and inhaled corticosteroids. Encounter Diagnosis: COPD, NEC (496.), BRONCHOGENIC CARCINOMA (209.21) Historical Summary 19-Feb-2012 15:42 To 19-Feb-2012 15:49 [facility] Medication Order 09-Sep-2011 15:30 To 09-Sep-2011 15:35 Encounter Diagnosis: Unspecified Diagnosis [facility] Payers [facility] [address] [facility] [id number] [place] Group Number: [id number] tel: [employer] [address] [facility] [address] [place] Group Number: [id number] tel: [employer] [address] [address] [facility] [address] [place] Group Number: [id number] tel: TOMMY LUI [address] [place] [id number] tel:
[2019-07-15 11:32] VITALS: BP 176/81
--- NOTE | 2019-07-15 12:47 | UC ---
Respiratory Complaint HPI - HPI Summary HPI Summary: 88 year old male with h/o COPD and 4 years post lobecomy for lung cancer presents with a 4 day hisory of productive cough. He denies associated chest pain nor sob. He sees Dr. Guerra for his lung cancer follow-up and had no evidence of recurrence within the past two months that included a CT. - History of Current Complaint Chief Complaint: UCRespiratory Stated Complaint: COUGH CONGESTION Time Seen by Provider: 07/15/19 12:45 Hx Obtained From: Patient Onset/Duration: Sudden Onset, Lasting Days - 4 Pain Intensity: 0 Associated Signs And Symptoms: Positive: Wheezing. Negative: Dyspnea, Fever, Chills, Pleuritic Chest Pain, Hemoptysis, Dizziness, Calf Swelling, Nasal Congestion, Sinus Discomfort - Allergies/Home Medications Allergies/Adverse Reactions: Allergies Allergy/AdvReac Type Severity Reaction Status Date / Time No Known Allergies Allergy Verified 07/15/19 11:32 Home Medications: Home Medications Chlorpheniramine/Dextromethorp [Cough-Cold Tablet] 1 each PO 07/15/19 [History] PMH/Surg Hx/FS Hx/Imm Hx Previously Healthy: Yes Cardiovascular History: Hypertension Respiratory History: COPD Cancer History: Lung Cancer - following with Dr. Guerra., Colorectal Cancer - Surgical History Surgical History: Yes Surgery Procedure, Year, and Place: GALL BLADDER REMOVAL,LAMINECTOMY,COLECTOMY, UPPER RIGHT LOBE PNEUMONECTOMY - Family History Known Family History: Positive: Unknown, Respiratory Disease - Social History Alcohol Use: Weekly Alcohol Amount: 2 glasses wine Substance Use Type: None Smoking Status (MU): Former Smoker Type: Cigarettes Have You Smoked in the Last Year: No When Did the Patient Quit Smoking/Using Tobacco: 1975 - Immunization History Most Recent Influenza Vaccination: July 2015 Review of Systems All Other Systems Reviewed And Are Negative: Yes Constitutional: Negative: Fever, Chills, Fatigue Skin: Negative: Rash Eyes: Negative: Blurred Vision ENT: Negative: Sore Throat, Nasal Discharge, Sinus Congestion Respiratory: Positive: Cough. Negative: Shortness Of Breath Cardiovascular: Negative: Palpitations, Chest Pain Gastrointestinal: Negative: Abdominal Pain, Vomiting, Diarrhea, Nausea Genitourinary: Positive: Negative Motor: Positive: Negative Neurovascular: Positive: Negative Musculoskeletal: Positive: Negative Neurological: Positive: Negative Psychological: Positive: Negative Is Patient Immunocompromised?: No Physical Exam Triage Information Reviewed: Yes Appearance: Well-Appearing Vital Signs: Initial Vital Signs Temp 97.2 F 07/15/19 11:30 Pulse 67 07/15/19 11:30 Resp 18 07/15/19 11:30 BP 176/81 07/15/19 11:30 Pulse Ox 95 07/15/19 11:30 Vital Signs Reviewed: Yes Eyes: Positive: Conjunctiva Clear ENT: Positive: Normal ENT inspection Neck: Positive: Supple, Nontender, No Lymphadenopathy Respiratory: Positive: Chest non-tender, Lungs clear, No respiratory distress, Wheezing. Negative: Crackles, Rhonchi Cardiovascular: Positive: RRR, No Murmur Abdomen Description: Positive: Nontender, Soft Musculoskeletal: Positive: Strength Intact, ROM Intact Neurological: Positive: Alert Psychological Exam: Normal Skin: Negative: Rashes Respiratory Course/Dx - Differential Dx/Diagnosis Provider Diagnosis: COPD with acute exacerbation, Bronchitis Discharge ED - Sign-Out/Discharge Documenting (check all that apply): Patient Departure All imaging exams completed and their final reports reviewed: No Studies - Discharge Plan Condition: Stable Disposition: HOME Prescriptions: Azithromycin 500 mg PO DAILY 3 Days #6 tablet methylPREDNISolone [Medrol] 4 mg PO .SEE TERRA INSTRUCTION #1 [id number] Patient Education Materials: Acute Bronchitis (ED) Referrals: Kyle Martin MD [Primary Care Provider] - Additional Instructions: Take medications as prescribed. Follow-up with your primary care physician if your symptoms persist or worsen. - Billing Disposition and Condition Condition: STABLE Disposition: Home
== END 2019-07-15 13:17 | disposition home or self-care (01) ==
LOC: UCCORT 11:10
DX: J44.1 Chronic obstructive pulmonary disease with (acute) exacerbation (principal); Z85.118 Personal history of other malignant neoplasm of bronchus and lung; I10 Essential (primary) hypertension; Z87.891 Personal history of nicotine dependence
CPT/HCPCS: 99212; G0463